=== PATIENT | female | born 1950 | race African-American/Black ===

== ENCOUNTER 2018-07-03 06:22 | Inpatient (IN) | payer BC, MEDICARE ==
[~2018-07-03] VITALS: Ht 172.7 cm; Wt 97.7 kg
[~2018-07-03 06:22] MED LIST: ADVIL FLU & BO1 EACH PO; ADVIL200 MG PO; ALPRAZOLAM; ALPRAZOLAM 0.0.25 M1 PO; AMOXICILLIN 50500 MG PO; AMOXICILLIN/POTASSIU; AUGMENTIN 875875 M1 PO; AVAPRO300 MG PO; CARISOPRODOL 3350 MG PO; CIPRO 500MG TA500 MG PO; CIPROFLOXACIN500 M1 PO; CIPROFLOXACIN500 M3 GT; COLACE100 MG PO; CYCLOBENZAPRINE PO; DILAUDID2 M1 PO; DIOVAN; DOXEPIN 10 MG C10 MG PO; DOXEPIN 50MG CA50 M1 PO; FLAGYL500 MG PO; FLEXERIL PO; GEMFIBROZIL PO; HYDROCHLOROTHIA25 M2 PO; HYDROCODONE-AP1 EAC6 PO; IBUPROFEN 800800 M1 PO; MUCINEX600 MG PO; NAPROSYN500 MG PO; NORCO 5-325 TA1 EACH PO; OMEPRAZOLE PO; PERCOCET 5-3251 EACH PO; SENNA CONCENTR8.6 MG PO; TOPROL XL100 MG PO; TRIAMTERENE; VITAMIN B-1100 M1 PO; VITAMIN D 5050000 I1 PO; XANAX 0.25 MG0.25 MG PO; ZOFRAN4 MG PO; [UNRECOGNIZED DRUG - CODE] PO; [UNRECOGNIZED DRUG - REMARK]
[2018-07-03 06:29] VITALS: BP 152/97
[2018-07-03] MEDS ORDERED: VITAMIN D1000 UNI1 (06:34)
[2018-07-03] MEDS ORDERED: IRON325 (06:35)
[2018-07-03] MEDS ORDERED: REPATHA PU420 MG/3.5 (06:35)
[2018-07-03] MEDS ORDERED: LABETALOL HCL100 MG (06:36)
[2018-07-03] MEDS ORDERED: AVAPRO300 MG PO (06:36)
[2018-07-03] MEDS ORDERED: CHLORTHALIDONE25 MG (06:37)
[2018-07-03] MEDS ORDERED: ASPIRIN81 M2 (06:37)
[2018-07-03 06:58] LABS: HEMOGLOBIN 12.1 gm/dL (12.0-15.0); MCH 28.2 pg (26.0-34.0); MCHC 33.7 g/dL (28.0-37.0); MCV 83.7 fL (80.0-100.0); NUCLEATED RBCS 0 /100WBC; PLATELET COUNT* 404 thou/uL (150-400); RBC 4.31 mil/uL (4.20-5.00); RDW-CV 15.3 % (10.5-14.5); WBC 11.1 thou/uL (4.0-11.0)
[2018-07-03 07:08] LABS: PROTIME 10.2 Seconds (9.20-11.50)
[2018-07-03 07:16] LABS: ALBUMIN 3.8 g/dL (3.4-5.0); ALKALINE PHOSPHATASE 58 U/L (46-116); ANION GAP 10 mmol/L (7-16); BUN 17 mg/dL (7-18); CALCIUM 9.9 mg/dL (8.5-10.1); CHLORIDE 99 mmol/L (98-107); CO2 28 mmol/L (21-32); GLUCOSE 116 mg/dL (70-99); LIPASE 59 U/L (73-393); POTASSIUM 3.6 mmol/L (3.5-5.1); SGOT 15 U/L (15-37); SGPT 24 U/L (30-65); SODIUM 137 mmol/L (136-145); TOTAL BILIRUBIN 0.6 mg/dL (<0.1-1.0); TOTAL PROTEIN 8.1 g/dL (6.4-8.2); TROPONIN-I LEVEL <0.06 ng/mL (<0.06)
[2018-07-03 07:25] LABS: ABSOLUTE EOSINOPHILS 0.1 thou/uL (0.0-0.7); ABSOLUTE LYMPHOCYTES 0.4 thou/uL (0.8-5.3); ABSOLUTE MONOCYTES 0.1 thou/uL (0.0-1.2); ABSOLUTE NEUTROPHILS 10.4 thou/uL (1.6-8.1); ANISOCYTOSIS 1+; PLATELET ESTIMATE INCREASED; POIKILOCYTOSIS 1+
--- NOTE | 2018-07-03 08:37 | NUR ---
ANTONIO NOTIFIED UPON PT RETURN FROM CT. PT CONNECTED TO O2 AND O2 PULSE OX SHE WAS PRIOR TO CT
[2018-07-03 08:46] LABS: URINE BILIRUBIN NEGATIVE (Negative); URINE BLOOD NEGATIVE (Negative); URINE CLARITY CLEAR; URINE COLOR YELLOW; URINE GLUCOSE-RANDOM NEGATIVE (Negative); URINE KETONES NEGATIVE (Negative); URINE LEUKOCYTES-REFLEX NEGATIVE (Negative); URINE NITRITE-REFLEX NEGATIVE (Negative); URINE PROTEIN NEGATIVE (Negative); URINE SPECIFIC GRAVITY <= 1.005 (1.005-1.030); URINE UROBILINOGEN 0.2 E.U./dl (0.2-1.0)
--- NOTE | 2018-07-03 09:08 | NUR ---
DR. LR TO SEE PT
--- NOTE | 2018-07-03 09:31 | NUR ---
TWO RN'S ATTEMPTED TO PLACE NG TUBE WITHOUT SUCCESS. DR. LR NOTIFIED. IR CONSULT PLACED
[2018-07-03 10:24] VITALS: BP 190/101
[2018-07-03 11:30] VITALS: BP 173/89
--- NOTE | 2018-07-03 12:00 | NUR ---
PATIENT RECEIVED FROM ER AT 1130, ALERT AND ORIENTED X4. VITALS MONITORED, HYDRALAZINE 10MG IV GIVEN FOR HIGH BP, 173/89. FENTANYL 50MCG GIVEN ONCE FOR PAIN. NG INSERTED BY DR LR, KEPT IN LIS. PT IN NPO STATUS. NS INITIATED AT 100 MLS/HR. ADMISSION PROCESS COMPLETED.
[2018-07-03 15:19] VITALS: BP 154/83
--- NOTE | 2018-07-03 18:53 | NUR ---
ATTENTION CASE MANAGEMENT: PT REQUESTED TO DO DPOA PAPERWORK. PT WOULD LIKE TO MAKE SON SVEN COTTON [phone] AND NEGRA PHAN HER DPOA.
[2018-07-03 19:30] VITALS: BP 149/92
--- NOTE | 2018-07-03 19:40 | NUR ---
PATIENT COMFORTABLE THAN BEFORE. DR LR EXPLAINED HER CONDITION TO HER CHILDREN. PT NAUSEOUS AT 1900, ZOFRAN 4MG IV GIVEN. VSS
--- NOTE | 2018-07-04 04:01 | NUR ---
RECIEVED REPORT AND ASSUMED CARE AT 1900. VITAL SIGNS STABLE. PT IS UP WITH STAND BY ASSIST. PT HAS PAIN AT TIMES IN ABD BUT REFUSED PAIN MEDS, REPOSITIONING HELPED MANAGE PAIN. ASSESSMENT COMPLETED AND DICUSSED PLAN OF CARE, PT UNDERSTANDS. BED LOCKED AND CALL LIGHT WITHIN REACH. FALL PRECAUTIONS IN PLACE. HOURLY ROUNDING DONE AND ALL NEEDS MET. NURSING WILL CONTINUE TO MONITOR.
[2018-07-04 04:47] LABS: HEMATOCRIT 34.4 % (37.0-47.0); HEMOGLOBIN 11.3 gm/dL (12.0-15.0); MCH 27.7 pg (26.0-34.0); MCHC 32.9 g/dL (28.0-37.0); MCV 84.1 fL (80.0-100.0); MPV 7.8 fl. (7.2-11.1); RBC 4.1 mil/uL (4.20-5.00); RDW-CV 15.2 % (10.5-14.5); WBC 8.7 thou/uL (4.0-11.0)
[2018-07-04 05:34] LABS: CALCIUM 8.8 mg/dL (8.5-10.1); CREATININE 1.1 mg/dL (0.6-1.3); MAGNESIUM 1.6 mg/dL (1.8-2.4); POTASSIUM 3.3 mmol/L (3.5-5.1); TOTAL BILIRUBIN 0.5 mg/dL (<0.1-1.0); TOTAL PROTEIN 6.8 g/dL (6.4-8.2)
[2018-07-04 08:00] VITALS: BP 135/70
[2018-07-04 16:09] VITALS: BP 152/94
[2018-07-04 19:40] VITALS: BP 147/83
--- NOTE | 2018-07-05 02:38 | NUR ---
RECIEVED REPORT AND ASSUMED CARE AT 1900. VITAL SIGNS ARE STABLE. PT HAS ABD PAIN AND PRN PAIN MEDS GIVEN ORDERED. PT IS UP ADLIB TO THE COMMODE AND TO BED. ASSESSMENT COMPLETED DISCUSSED PLAN OF CARE AND PT UNDERSTANDS. BED LOCKED AND CALL LIGHT WITHIN REACH. HOURLY ROUNDING DONE AND ALL NEEDS MET. NURSING WILL CONTINUE TO MONITOR.
[2018-07-05 04:25] LABS: CALCIUM 8.9 mg/dL (8.5-10.1); CREATININE 1.1 mg/dL (0.6-1.3); MAGNESIUM 1.9 mg/dL (1.8-2.4); POTASSIUM 3.5 mmol/L (3.5-5.1)
[2018-07-05 04:42] LABS: HEMATOCRIT 34.5 % (37.0-47.0); HEMOGLOBIN 11.2 gm/dL (12.0-15.0); MCH 27.4 pg (26.0-34.0); MCHC 32.6 g/dL (28.0-37.0); MCV 84.2 fL (80.0-100.0); MPV 7.7 fl. (7.2-11.1); RBC 4.1 mil/uL (4.20-5.00); RDW-CV 15.2 % (10.5-14.5); WBC 9.3 thou/uL (4.0-11.0)
[2018-07-05 09:00] VITALS: BP 138/81
[2018-07-05 19:30] VITALS: BP 141/62
--- NOTE | 2018-07-05 19:53 | NUR ---
I ASSUMED CARE OF THE PATIENT AT 0700. SHE IS ALERT AND ORIENTED X4 AND IS UP WITH STAND BY ASSIST. SHE IS ALERT AND ORIENTED X4. BED IS IN THE LOW LOCKED POSITION AND CALL LIGHT IS IN REACH. HOURLY ROUNDING WAS COMPLETED AND PATIENT NEEDS WERE MET. PAIN IS MANAGED WITH PRN MEDS. SHE IS ON LOW INTERMITANT SUCTION WITH AN NG TUBE AT 70. FLUIDS ARE INFUSING. SHE REMAINED NPO WITH SIPS FOR MEDS. PATIENT WAS MOVED TO A DIFFERENT ROOM TO HELP WITH TEMPERATURE AND A FUNCTIONING SHOWER. EDUCATION GIVEN ON SPECIAL DIET AND MEDICAL HISTORY DIAGNOSIS. LABS ARE MONITORED AND VITAL SIGNS STABLE. WILL CONTINUE TO MONITOR.
--- NOTE | 2018-07-06 02:38 | NUR ---
RECIEVED REPORT AND ASSUMED CARE AT 1900. VITAL SIGNS ARE STABLE. PT IS UP WITH STANDBY ASSIST. PT HAS PAIN AND PRN PAIN MEDS GIVEN ORDERED. PT HAD SOME NAUSEA AND PRN NAUSEA MEDS GIVEN ORDERED. ASSESSMENT COMPLETED DISCUSSED PLAN OF CARE AND PT UNDERSTANDS. BED LOCKED AND CALL LIGHT WITHIN REACH. FALL PRECAUTIONS IN PLACE. HOURLY ROUNDING DONE AND ALL NEEDS MET. NURSING WILL CONTINUE TO MONITOR.
[2018-07-06 04:43] LABS: HEMATOCRIT 32.9 % (37.0-47.0); HEMOGLOBIN 10.8 gm/dL (12.0-15.0); MCH 27.5 pg (26.0-34.0); MCHC 32.8 g/dL (28.0-37.0); MCV 83.6 fL (80.0-100.0); MPV 7.4 fl. (7.2-11.1); RBC 3.94 mil/uL (4.20-5.00); RDW-CV 14.8 % (10.5-14.5); WBC 8.5 thou/uL (4.0-11.0)
[2018-07-06 05:13] LABS: CALCIUM 8.6 mg/dL (8.5-10.1); MAGNESIUM 1.6 mg/dL (1.8-2.4); PHOSPHORUS* 3.2 mg/dL (2.5-4.9); POTASSIUM 3.7 mmol/L (3.5-5.1)
[2018-07-06 08:00] VITALS: BP 146/87
--- NOTE | 2018-07-06 10:41 | NUR ---
AM ASSESSMENT AND VITAL SIGNS COMPLETED DOCUMENTED. PT A/O, DENIES NAUSEA OR PAIN THIS AM. NG TUBE TO INTERMITTENT SUCTION, 350 CC OF LIGHT GREENISH BROWN GASTRIC FLUID IN COLLECTION CONTAINER. PT's ABDOMEN IS SOFT WITH HYPOACTIVE BOWEL SOUNDS. PT TRANSPORTED TO RADIOLOGY FOR SMALL BOWEL FOLLOW THROUGH AT 0845.
[2018-07-06 16:00] VITALS: BP 112/68
--- NOTE | 2018-07-06 16:47 | NUR ---
PT.HAS BEEN ON BSC SEVERAL TIMES THIS AFTERNOON. CM UNABLE TO SEE BECAUSE OF THIS. WILL SEE IN AM.
[2018-07-06 21:45] VITALS: BP 108/47
[2018-07-07 00:30] VITALS: BP 111/48
[2018-07-07 04:00] VITALS: BP 116/46
[2018-07-07 04:31] LABS: HEMATOCRIT 31.8 % (37.0-47.0); HEMOGLOBIN 10.5 gm/dL (12.0-15.0); MCH 27.7 pg (26.0-34.0); MCHC 32.9 g/dL (28.0-37.0); MCV 84.2 fL (80.0-100.0); MPV 7.7 fl. (7.2-11.1); NUCLEATED RBCS 0 /100WBC; PLATELET COUNT* 353 thou/uL (150-400); RBC 3.77 mil/uL (4.20-5.00); RDW-CV 14.9 % (10.5-14.5); WBC 7.3 thou/uL (4.0-11.0)
[2018-07-07 04:53] LABS: CREATININE 1.2 mg/dL (0.6-1.3); MAGNESIUM 2.6 mg/dL (1.8-2.4); POTASSIUM 3.6 mmol/L (3.5-5.1)
[2018-07-07 05:42] LABS: ABSOLUTE LYMPHOCYTES 0.6 thou/uL (0.8-5.3); ABSOLUTE MONOCYTES 0.8 thou/uL (0.0-1.2); ABSOLUTE NEUTROPHILS 5.9 thou/uL (1.6-8.1)
[2018-07-07 05:43] LABS: PLATELET ESTIMATE ADEQUATE
--- NOTE | 2018-07-07 07:00 | NUR ---
PATIENT HAS SLEPT WELL THROUGHOUT THE NIGHT. VSS ON RA. NO C/O PAIN. MEDICATIONS GIVEN VIA NG TUBE. NG TUBE PLY CUTTER THIS AM PER ORDERS. PATIENT ADVANCED THIS AM TO CLEAR LIQUID DIET PER ORDERS. PATIENT IS UP TO BSC AND STEADY. IV IN LEFT HAND-D5 1/2 NS W/20K @ 100ML/HR. PATIENT INSTRUCTED TO USE CALL LIGHT WHEN NEEDING ASSISTANCE. HOURLY ROUNDS MADE. WILL CONTINUE WITH PLAN OF CARE AND NURSING TO MONITOR.
[2018-07-07 07:38] VITALS: BP 136/80
--- NOTE | 2018-07-07 11:31 | NUR ---
PT.UP IN ROOM GETTING READY TO TAKE A SHOWER. SHE SAID SHE LIVES ALONE. SHE IS INDEPENDENT AT HOME. NO USE OF DME OR HX OF HH. SHE SAID HER DAUGHTER CAN HELP HER IF NEEDED. SHE SAID SHE SHOULDN'T HAVE ANY DISCHARGE NEEDS.
[2018-07-07 15:42] VITALS: BP 124/82
--- NOTE | 2018-07-07 17:11 | NUR ---
PT REMAINED ALERT AND ORIENTED. PT TOLERATED CLEAR LIQUID DIET. PT NEW IV IN RT HAND, LT HAND IV INFILTRATED. NG TUBE REMOVED PER SURGERY ORDERS. FALL RISK PRECAUTIONS IN PLACE. HOURLY ROUNDING COMPLETED. WILL CONTINUE TO MONITOR.
[2018-07-07 22:45] VITALS: BP 128/74
[2018-07-08 04:42] LABS: CALCIUM 8.4 mg/dL (8.5-10.1); CREATININE 1.2 mg/dL (0.6-1.3); POTASSIUM 3.7 mmol/L (3.5-5.1)
[2018-07-08 05:25] LABS: CALCIUM 8.4 mg/dL (8.5-10.1); CREATININE 1.2 mg/dL (0.6-1.3); POTASSIUM 3.7 mmol/L (3.5-5.1)
--- NOTE | 2018-07-08 06:15 | NUR ---
PATIENT HAS SLEPT WELL THROUGHOUT THE NIGHT. VSS ON RA. NO C/O PAIN. PATIENT IS UP AD-NIGEL AND STEADY. PATIENT TOLERATING CLEAR LIQUIDS AND DIET ADVANCED TO FULL LIQUIDS FOR TODAY. IV IN RIGHT HAND-D5 1/2 NS W/20k @ 75ml/hr. PATIENT INSTRUCTED TO USE CALL LIGHT WHEN NEEDING ASSISTANCE. HOURLY ROUNDS MADE. WILL CONTINUE WITH PLAN OF CARE AND NURSING TO MONITOR.
[2018-07-08 08:00] VITALS: BP 131/75
[2018-07-08] MEDS ORDERED: ONDANSETRON HCL4 M2 PO (12:31)
[2018-07-08] MEDS ORDERED: NORCO 5-325 TA1 EACH PO (12:32)
[2018-07-08 12:39] VITALS: BP 131/75
--- NOTE | 2018-07-08 14:10 | NUR ---
PT.TO DISCHARGE TODAY. GAVE HER WORK RELEASE SIGNED BY AND FILLED OUT. SHE SIGNED A RELEASE OF INFORMATION TO OBTAIN HER MEDICAL RECORDS. EXPLAINED THEY COME FROM A REMOTE LOCATION SO CANNOT OBTAIN TODAY. SHE HAS A RENTAL CAR PARKED IN ER LOT FROM WHEN SHE CAME IN. GAVE HER MY EMAIL ADDRESS AT WORK. SHE SAID HER EMPLOYER WANTED TO SEND [facility] PAPERS FOR TO FILL OUT. SECURITY BRINGING OVER PT.'S VALUABLES.
--- NOTE | 2018-07-08 14:30 | NUR ---
PT DISCHARGED AND LEFT UNIT AT 1417 WITH NURSING STAFF BY SELF IN SUV. IV OUT. LUNCH TOLERATED. DISCHARGE SIGNED. PRESCRIPTIONS AND CARE NOTES GIVEN. PT STABLE UPON DISCHARGE.
== END 2018-07-08 14:32 | disposition home or self-care (01) | DRG 390 ==
LOC: M.ERS 06:22 → M.TBA-ER 09:00 → M.ORTHSURG 09:00
PROVIDERS: Emergency Medicine; Surgery; ADMIT Family Medicine
PROC: 0D9670Z Drainage of Stomach with Drainage Device, Via Natural or Artificial Opening (ICD-10-PCS; principal; 2018-07-03)
DX: K56.51 Intestinal adhesions [bands], with partial obstruction (principal); F41.9 Anxiety disorder, unspecified; I10 Essential (primary) hypertension; E78.5 Hyperlipidemia, unspecified; I73.9 Peripheral vascular disease, unspecified; E87.6 Hypokalemia; E83.42 Hypomagnesemia; G43.909 Migraine, unspecified, not intractable, without status migrainosus; F32.9 Major depressive disorder, single episode, unspecified; Z90.710 Acquired absence of both cervix and uterus; Z90.49 Acquired absence of other specified parts of digestive tract; Z88.5 Allergy status to narcotic agent; Z88.8 Allergy status to other drugs, medicaments and biological substances; Z88.1 Allergy status to other antibiotic agents

== ENCOUNTER → 2019-10-06 | Outpatient (CLI) | payer MEDICARE, OTHER ==
[~2019-10-06] MED LIST changes: +ASPIRIN81 M2; +CHLORTHALIDONE25 MG; +IRON325; +LABETALOL HCL100 MG; +ONDANSETRON HCL4 M2 PO; +REPATHA PU420 MG/3.5; +VITAMIN D1000 UNI1
== END ==
LOC: M.ULTRA 11:30
PROVIDERS: ATTEND Family Medicine
DX: M79.605 Pain in left leg (principal)